=== PATIENT | female | born 1940 | race Hispanic/Latino ===

== ENCOUNTER 2017-03-25 10:54 | Inpatient (IN) | payer MEDICARE, BC ==
[2017-03-25 10:54] VITALS: BMI 18.6
[2017-03-25 11:58] LABS: HEMOGLOBIN 12.5 g/dL (12.0-16.0); LYMPH # 0.6 K/uL (1.0-4.3); MEAN CELL VOLUME 87.2 fl (81.0-99.0); MEAN CORPUSCULAR HEMOGLOBIN 29.6 pg (27.0-31.0); MEAN CORPUSCULAR HGB CONC 33.9 g/dL (33.0-37.0); MEAN PLATELET VOLUME 6.3 fl (7.2-11.7); MONO # 0.6 K/uL (0.0-0.8); MONO % 17.2 % (0.0-10.0); NEUT # 2.1 K/uL (1.8-7.0); NEUT % 62.8 % (50.0-75.0); NRBC % 0.1 % (0.0-0.0); PLATELET COUNT 270 K/uL (130-400); RBC 4.22 Mil/uL (3.80-5.20); RED CELL DISTRIBUTION WIDTH 13.9 % (11.5-14.5); WHITE BLOOD COUNT 3.4 K/uL (4.8-10.8)
[2017-03-25 12:12] LABS: BLOOD UREA NITROGEN 12 mg/dl (7-17); CALCIUM 9.3 mg/dL (8.4-10.2); GFR AFRICAN-AMERICAN > 60; GFR NON-AFRICAN AMERICAN > 60
[2017-03-25 12:14] LABS: PARTIAL THROMBOPLASTIN TIME 34.7 Seconds (25.6-37.1); PROTHROMBIN TIME 10.5 Seconds (9.8-13.1)
[2017-03-25] MEDS ORDERED: Dexamethasone 10 MG in Sodium Chloride 0.9% 50 ML IV ONE (12:15)
--- NOTE | 2017-03-25 13:14 | ED PDOC ---
HPI: General Adult Time Seen by Provider: 03/25/17 11:25 Chief Complaint (Nursing): ENT Problem Chief Complaint (Provider): Right hand pain History Per: Patient History/Exam Limitations: no limitations Onset/Duration Of Symptoms: Days Additional Complaint(s): The patient is a 77yo female, hx of hypertension, presents to the ED for evaluation of right hand pain, ongoing for "a while". Patient reports she had an outpatient MRI which showed abnormal findings of cervical spine with possible compression of cervical cord. Dr. Gomez sent patient here for evaluation. Patient currently has no additional medical complaints. Past Medical History Reviewed: Historical Data, Nursing Documentation, Vital Signs Vital Signs: Last Vital Signs Temp 98.3 F 03/25/17 12:58 Pulse 82 03/25/17 12:58 Resp 19 03/25/17 12:58 BP 132/74 03/25/17 12:58 Pulse Ox 96 03/25/17 13:20 - Medical History PMH: HTN - Surgical History Surgical History: No Surg Hx Denies: Pacemaker - Family History Family History: States: No Known Family Hx - Home Medications Home Medications: Ambulatory Orders Medication Instructions Recorded Solifenacin Succinate [Vesicare] 5 mg PO DAILY 03/04/14 Zinc Gluconate [Zinc Natural] 50 mg PO DAILY 01/16/15 Apixaban [Eliquis] 5 mg PO Q12H 03/25/17 Cholecalciferol [Vitamin D 1000 IU] 1,000 unit PO DAILY 03/25/17 Diltiazem HCl [Diltiazem ER] 240 mg PO DAILY 03/25/17 Magnesium Oxide [Mag-Ox] 400 mg PO DAILY 03/25/17 Mesalamine [Lialda] 2.4 gm PO BID 03/25/17 Pramipexole Di-HCl [Pramipexole 0.25 mg PO HS 03/25/17 Dihydrochloride] Pregabalin [Lyrica] 50 mg PO Q12H 03/25/17 Thyroid [[place] Thyroid] 30 mg PO DAILY 03/25/17 Ubidecarenone [Coenzyme Q10] 1 cap PO DAILY 03/25/17 - Allergies Allergies/Adverse Reactions: Allergies Allergy/AdvReac Type Severity Reaction Status Date / Time statins Allergy Severe RASH Uncoded 03/04/14 11:49 Review of Systems ROS Statement: Except As Marked, All Systems Reviewed And Found Negative Musculoskeletal: Positive for: Hand Pain (right) Physical Exam - Reviewed Nursing Documentation Reviewed: Yes Vital Signs Reviewed: Yes - Physical Exam Appears: Positive for: Well, Non-toxic, No Acute Distress Head Exam: Positive for: ATRAUMATIC, NORMAL INSPECTION, NORMOCEPHALIC Skin: Positive for: Normal Color, Warm, DRY Eye Exam: Positive for: Normal appearance Neck: Positive for: Normal, Supple Cardiovascular/Chest: Positive for: Regular Rate, Rhythm Respiratory: Positive for: Normal Breath Sounds. Negative for: Respiratory Distress Extremity: Positive for: Normal ROM. Negative for: Deformity, Swelling Neurologic/Psych: Positive for: Alert, Oriented - Laboratory Results Result Diagrams: 03/25/17 11:45 03/25/17 11:45 - ECG O2 Sat by Pulse Oximetry: 96 (RA) Pulse Ox Interpretation: Normal Medical Decision Making Medical Decision Making: Time: 1140 Impression: Neuropathy, concern for compression effect on cervical cord Plan: -- Consult with Dr. Gomez, neurosurgeon for further management. Reassess Scribe Attestation: Documented by Lou Redd acting as a scribe for Leonidas Sheppard MD. Provider Attestation: All medical record entries made by the Scribe were at my direction and personally dictated by me. I have reviewed the chart and agree that the record accurately reflects my personal performance of the history, physical exam, medical decision making, and the department course for this patient. I have also personally directed, reviewed, and agree with the discharge instructions and disposition. Disposition - Clinical Impression Clinical Impression: Cervical spinal cord compression - Patient ED Disposition Is Patient to be Admitted: Yes Discussed With : Alok Mendoza Counseled Patient/Family Regarding: Studies Performed, Diagnosis - Disposition Disposition Time: 11:47 Condition: FAIR - Pt Status Changed To: Hospital Disposition Of: Inpatient - Admit Certification Admit to Inpatient:: After my assessment, the patient will require hospitalization for at least two midnights. This is because of the severity of symptoms shown, intensity of services needed, and/or the medical risk in this patient being treated as an outpatient. - POA Present On Arrival: None
[2017-03-25 13:50] LABS: ANISOCYTOSIS SLIGHT; BASOPHIL 2 % (0-2); LARGE PLATELETS PRESENT; LYMPHOCYTE 21 % (20-50); MONOCYTE 16 % (0-10); NEUTROPHIL 59 % (42-75); PLATELET ESTIMATE NORMAL (NORMAL); POIKILOCYTOSIS SLIGHT; REACTIVE LYMPHOCYTES 2 % (0-0); TOTAL CELLS COUNTED 100
[2017-03-25] MEDS: Magnesium Oxide 400 mg Tab UD PO SCH (16:38)
[2017-03-25] MEDS: THYROID 30 MG TAB PO SCH (16:39)
[2017-03-25] MEDS: methylPREDNISolone 40 MG in Sodium Chloride 0.9% 50 ML IVPB SCH (17:09)
--- NOTE | 2017-03-25 17:24 | RAD ---
PROCEDURE: CHEST RADIOGRAPH, 1 VIEW HISTORY: COPD COMPARISON: None available. FINDINGS: LUNGS: A small nodular density in the superior right lung zone for which follow-up chest CT is advised. No acute infiltrate is appreciate or pleural effusion in this time. There is limited mamillation of the right hemidiaphragm. PLEURA: No pneumothorax or pleural fluid seen. CARDIOVASCULAR: Cardiac silhouette appears upper limits normal size. There is no pulmonary vascular derangement identified. OSSEOUS STRUCTURES: No significant abnormalities. VISUALIZED UPPER ABDOMEN: Normal. OTHER FINDINGS: None. IMPRESSION: No acute infiltrate or pleural effusion is identified at this time. A small nodule is identified in the right upper lung zone for which follow-up chest CT is advised to evaluate for potential malignancy. Findings discussed with Dr. Mendoza, 04/03/1980 17:15 p.m.
[2017-03-25 18:36] LABS: SQUAMOUS EPITHIAL 6 /hpf (0-5); URINE BACTERIA RARE (<OCC); URINE BILIRUBIN NEGATIVE (NEGATIVE); URINE BLOOD NEGATIVE (NEGATIVE); URINE CLARITY CLOUDY (Clear); URINE COLOR AMBER (YELLOW); URINE GLUCOSE (UA) NEG (Normal); URINE LEUKOCYTE ESTERASE MOD Leu/uL (Negative); URINE NITRATE NEGATIVE (NEGATIVE); URINE PROTEIN 100 mg/dL (NEGATIVE); URINE UROBILINOGEN 0.2-1.0 mg/dL (0.2-1.0)
--- NOTE | 2017-03-25 19:38 | CP.PCM.CON ---
History of Present Illness - History of Present Illness History of Present Illness: I was asked to see patient by Dr Mendoza. Patient is a 77 year old female with a history of HTN, PAD, LLE amputation, who presents with neck pain. Patient has cervical disc disease and requires surgery. Patient had a previous nuclear stress test which was negative for ischemia. Review of Systems - Constitutional Constitutional: absent: As Per HPI, Anorexia, Chills, Daytime Sleepiness, Excessive Sweating, Fatigue, Fever, Frequent Falls, Headache, Increased Appetite , Lethargy, Malaise, Night Sweats, Snoring, Sleep Apnea, Weight Gain, Weight Loss, Weakness, Other - EENT Eyes: absent: As Per HPI, Blind Spots, Blurred Vision, Change in Vision, Decreased Night Vision, Diplopia, Discharge, Dry Eye, Exophthalmos, Floaters, Irritation, Itchy Eyes, Loss of Peripheral Vision, Pain, Photophobia, Requires Corrective Lenses, Sees Flashes, Spots in Vision, Tunnel Vision, Other Visual Disturbances, Loss of Vision, Other Ears: absent: As Per HPI, Decreased Hearing, Ear Discharge, Ear Pain, Tinnitus, Abnormal Hearing, Disequilibrium, Dizziness, Other Nose/Mouth/Throat: absent: As Per HPI, Epistaxis, Nasal Congestion, Nasal Discharge, Nasal Obstruction, Nasal Trauma, Nose Pain, Post Nasal Drip, Sinus Pain, Sinus Pressure, Bleeding Gums, Change in Voice, Dental Pain, Dry Mouth, Dysphagia, Halitosis, Hoarsness, Lip Swelling, Mouth Lesions, Mouth Pain, Odynophagia, Sore Throat, Throat Swelling, Tongue Swelling, Facial Pain, Neck Pain, Neck Mass, Other - Cardiovascular Cardiovascular: absent: As Per HPI, Acrocyanosis, Chest Pain, Chest Pain at Rest , Chest Pain with Activity, Claudication, Diaphoresis, Dyspnea, Dyspnea on Exertion, Edema, Irregular Heart Rhythm, Pain Radiating to Arm/Neck/Jaw, Leg Edema, Leg Ulcers, Lightheadedness, Orthopnea, Palpitations, Paroxysmal Nocturnal Dyspnea, Pedal Edema, Radiating Pain, Rapid Heart Rate, Slow Heart Rate, Syncope, Other - Respiratory Respiratory: absent: As Per HPI, Cough, Dyspnea, Hemoptysis, Dyspnea on Exertion , Wheezing, Snoring, Stridor, Pain on Inspiration, Chest Congestion, Excessive Mucous Production, Change in Mucous Color, Pain with Coughing, Other - Gastrointestinal Gastrointestinal: absent: As Per HPI, Abdominal Pain, Belching, Bloating, Change in Bowel Habits, Change in Stool Character, Coffee Ground Emesis, Constipation, Cramping, Diarrhea, Dyspepsia, Dysphagia, Early Satiety, Excessive Flatus, Fecal Incontinence, Heartburn, Hematemesis, Hematochezia, Loose Stools, Melena, Nausea, Odynophagia, Temesmus, Vomiting, Other - Genitourinary Genitourinary: absent: As Per HPI, Change in Urinary Stream, Difficulty Urinating, Dysuria, Flank Pain, Hematuria, Pyuria, Nocturia, Urinary Incontinence, Urinary Frequency, Urinary Hesitance, Urinary Urgency, Voiding Freq/Small Amts, Freq UTI, Hx Renal/Bladder Calculi, Hx /Renal Surgery, Bladder Distension, Other - Musculoskeletal Musculoskeletal: Neck Pain - Integumentary Integumentary: absent: As Per HPI, Acne, Alopecia, Bleeding Lesions, Change in Hair, Change in Nails, Change in Pigmentation, Changing Lesions, Dry Skin, Erythema, Furuncle, Hirsutism, Lesions, New Lesions, Non-Healing Lesions, Photosensitivity, Pruritus, Rash, Skin Pain, Skin Ulcer, Sores, Striae, Swelling , Unusual Bruising, Wounds, Jaundice, Other - Neurological Neurological: absent: As Per HPI, Abnormal Gait, Abnormal Hearing, Abnormal Movements, Abnormal Speech, Behavioral Changes, Burning Sensations, Confusion, Convulsions, Disequilibrium, Dizziness, Numbness, Focal Weakness, Frequent Falls , Headaches, Lack of Coordination, Loss of Vision, Memory Loss, Paresthesias, Radicular Pain, Restless Legs, Sensory Deficit, Syncope, Tingling, Tremor, Vertigo, Weakness, Other Visual Disturbances, Other - Psychiatric Psychiatric: absent: As Per HPI, Abnormal Sleep Pattern, Anhedonia, Anxiety, Auditory Hallucinations, Behavioral Changes, Change in Appetite, Change in Libido, Confusion, Depression, Difficulty Concentrating, Hallucinations, Homicidal Ideation, Hopelessness, Irritability, Memory Loss, Mood Swings, Panic Attacks, Paranoia, Suicidal Ideation, Visual Hallucinations, Tactile Hallucinations, Other - Endocrine Endocrine: absent: As Per HPI, Change in Body Appearance, Change in Libido, Cold Intolorance, Deepening of Voice, Excessive Sweating, Fatigue, Flushing, Heat Intolorance, Increase in Ring/Shoe/Hat Size, Palpitations, Polydipsia, Polyphagia, Polyuria, Other - Hematologic/Lymphatic Hematologic: absent: As Per HPI, Easy Bleeding, Easy Bruising, Lymphadenopathy, Other Past Patient History - Infectious Disease Hx of Infectious Diseases: None - Past Medical History & Family History Past Medical History?: Yes - Past Social History Smoking Status: Former Smoker - CARDIAC Hx Hypertension: Yes Hx Pacemaker: No - PULMONARY Hx Respiratory Disorders: Yes Other/Comment: smoker - NEUROLOGICAL Hx Neurological Disorder: Yes Other/Comment: carpal tunnel rt. hand - HEENT Hx HEENT Problems: No - RENAL Hx Chronic Kidney Disease: No - ENDOCRINE/METABOLIC Hx Endocrine Disorders: Yes Hx Hypothyroidism: Yes - HEMATOLOGICAL/ONCOLOGICAL Hx Blood Disorders: No - INTEGUMENTARY Hx Dermatological Problems: No - MUSCULOSKELETAL/RHEUMATOLOGICAL Hx Musculoskeletal Disorders: Yes Hx Falls: No - GASTROINTESTINAL Hx Gastrointestinal Disorders: No Hx Colitis: Yes - GENITOURINARY/GYNECOLOGICAL Hx Genitourinary Disorders: No - PSYCHIATRIC Hx Psychophysiologic Disorder: No Hx Substance Use: No - SURGICAL HISTORY Hx Surgeries: Yes Hx Amputation: Yes (left aka) Other/Comment: 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 - ANESTHESIA Hx Anesthesia: Yes Hx Anesthesia Reactions: No Hx Malignant Hyperthermia: No Has any member of the family had a problem w/ anesthesia?: No Meds Allergies/Adverse Reactions: Allergies Allergy/AdvReac Type Severity Reaction Status Date / Time statins Allergy Severe RASH Uncoded 03/04/14 11:49 - Medications Medications: Current Medications Cholecalciferol (Vitamin D) 1,000 iu PO DAILY [facility] Home Med (Mesalamine [Lialda]) 2.4 gm PO BID [facility] Last Admin: 03/25/17 17:10 Dose: 2.4 gm Methylprednisolone 40 mg/ (Sodium Chloride) 50 mls @ 100 mls/hr IVPB DAILY [facility] Last Admin: 03/25/17 17:09 Dose: 100 mls/hr Magnesium Oxide (Mag-Ox) 400 mg PO DAILY [facility] Last Admin: 03/25/17 16:38 Dose: Not Given Pramipexole Dihydrochloride (Mirapex) 0.25 mg PO [facility] Pregabalin (Lyrica) 50 mg PO Q12@0900,2100 [facility] Thyroid ([place] Thyroid) 30 mg PO DAILY [facility] Last Admin: 03/25/17 16:39 Dose: Not Given Physical Exam - Constitutional Appears: Non-toxic - Head Exam Head Exam: NORMAL INSPECTION - Eye Exam Eye Exam: Normal appearance - ENT Exam ENT Exam: Mucous Membranes Moist - Neck Exam Neck exam: Positive for: Full Rom - Respiratory Exam Respiratory Exam: Decreased Breath Sounds - Cardiovascular Exam Cardiovascular Exam: REGULAR RHYTHM - GI/Abdominal Exam GI & Abdominal Exam: Normal Bowel Sounds - Rectal Exam Rectal Exam: Deferred - Extremities Exam Additional comments: LLE amputation - Back Exam Back exam: NORMAL INSPECTION - Neurological Exam Neurological exam: Alert, Oriented x3 - Psychiatric Exam Psychiatric exam: Normal Affect - Skin Skin Exam: Normal Color Results - Vital Signs Recent Vital Signs: Last Vital Signs Temp 97.3 F L 03/25/17 16:32 Pulse 88 03/25/17 16:32 Resp 16 03/25/17 16:32 BP 101/72 03/25/17 16:32 Pulse Ox 94 L 03/25/17 16:32 - Labs Result Diagrams: 03/25/17 11:45 03/25/17 11:45 Labs: Laboratory Results - last 24 hr 03/25/17 17:52 Urine Color [place] Urine Clarity Cloudy Urine pH 5.0 Ur Specific [place] 1.020 Urine Protein 100 Urine Glucose (UA) Neg Urine Ketones Trace Urine Blood Negative Urine Nitrate Negative Urine Bilirubin Negative Urine Urobilinogen 0.2-1.0 Ur Leukocyte Esterase Mod Urine Microscopic WBC 51 H Ur Squamous Epith Cells 6 H Urine Bacteria Rare - EKG Data EKG Interpreted by: Myself Assessment & Plan (1) Cervical spinal cord compression Assessment and Plan: I reviewed the stress test with the patient which was performed as an outpatient. Stress test was negative for myocardial ischemia, and left ventricular function is normal The echocardiogram performed today also reveals normal left ventricular function. There is no cardiovascular contraindication to the planned surgery. Status: Acute
[2017-03-26] MEDS ORDERED: Thrombin Topical 5,000 IU Spray Kit ONE (07:11)
[2017-03-26] MEDS ORDERED: Absorbable Gelatin Sponge Size 100 ONE (07:11)
[2017-03-26] MEDS ORDERED: Propofol 10 mg/ml Inj (20 ML) ONE (07:12)
[2017-03-26] MEDS ORDERED: Midazolam 2 MG/2 ML VIAL ONE (07:12)
[2017-03-26] MEDS ORDERED: Succinylcholine 200 mg/10 ml Inj IV ONE (07:12)
[2017-03-26] MEDS ORDERED: ePHEDrine 50 mg/ml Inj ONE (07:12)
[2017-03-26] MEDS ORDERED: Phenylephrine 10 mg/ml Inj ONE (07:12)
[2017-03-26] MEDS ORDERED: Rocuronium 10 mg/ml (5 ml) ONE (07:12)
[2017-03-26] MEDS: diltiaZEM 240 mg/24 Hours CD Cap PO SCH (07:31)
--- NOTE | 2017-03-26 07:39 | CP.PCM.CON ---
History of Present Illness - History of Present Illness History of Present Illness: Dr. 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 Review of Systems - Review of Systems Systems not reviewed;Unavailable: Acuity of Condition - EENT Eyes: Decreased Night Vision - Cardiovascular Additional comments: Hx Htn - Genitourinary Additional comments: hx overactive bladder on vesicare - Musculoskeletal Musculoskeletal: Muscle Weakness, Neck Pain, Radiating Pain into Limb, Tingling Additional comments: Left AKA,restless leg syndrome - Neurological Neurological: As Per HPI - Endocrine Additional Comments: Hx Hypothyroidism - Hematologic/Lymphatic Additional comments: severe PVD,takes Eliquis,last used 1 week ago Past Patient History - Infectious Disease Hx of Infectious Diseases: None - Tetanus Immunizations Tetanus Immunization: Unknown - Past Medical History & Family History Past Medical History?: Yes - Past Social History Smoking Status: Light Smoker < 10 Cigarettes Daily Chewing Tobacco Use: No Cigar Use: No 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 hand - HEENT Hx HEENT Problems: No - RENAL Hx Chronic Kidney Disease: No - ENDOCRINE/METABOLIC Hx Endocrine Disorders: Yes Hx Hypothyroidism: Yes - HEMATOLOGICAL/ONCOLOGICAL Hx Blood Disorders: No - INTEGUMENTARY Hx Dermatological Problems: No - MUSCULOSKELETAL/RHEUMATOLOGICAL Hx Musculoskeletal Disorders: Yes Hx Falls: No - GASTROINTESTINAL Hx Gastrointestinal Disorders: No Hx Colitis: Yes - GENITOURINARY/GYNECOLOGICAL Hx Genitourinary Disorders: No - PSYCHIATRIC Hx Psychophysiologic Disorder: No Hx Substance Use: No - SURGICAL HISTORY Hx Surgeries: Yes Hx Amputation: Yes (left aka) Other/Comment: 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 - ANESTHESIA Hx Anesthesia: Yes Hx Anesthesia Reactions: No Hx Malignant Hyperthermia: No Has any member of the family had a problem w/ anesthesia?: No Meds Allergies/Adverse Reactions: Allergies Allergy/AdvReac Type Severity Reaction Status Date / Time statins Allergy Severe RASH Uncoded 03/04/14 11:49 - Medications Medications: Current Medications Cholecalciferol (Vitamin D) 1,000 iu PO DAILY [facility] Diltiazem HCl (Cardizem Cd) 240 mg PO DAILY [facility] Home Med (Mesalamine [Lialda]) 2.4 gm PO BID [facility] Last Admin: 03/25/17 17:10 Dose: 2.4 gm Methylprednisolone 40 mg/ (Sodium Chloride) 50 mls @ 100 mls/hr IVPB DAILY [facility] Last Admin: 03/25/17 17:09 Dose: 100 mls/hr Magnesium Oxide (Mag-Ox) 400 mg PO DAILY [facility] Last Admin: 03/25/17 16:38 Dose: Not Given Pramipexole Dihydrochloride (Mirapex) 0.25 mg PO HS [facility] Last Admin: 03/25/17 21:00 Dose: 0.25 mg Pregabalin (Lyrica) 50 mg PO Q12@0900,2100 [facility] Last Admin: 03/25/17 20:57 Dose: 50 mg Thyroid ([place] Thyroid) 30 mg PO DAILY [facility] Last Admin: 03/25/17 16:39 Dose: Not Given Physical Exam - Constitutional Appears: Well, Non-toxic, No Acute Distress - Head Exam Head Exam: ATRAUMATIC, NORMAL INSPECTION, NORMOCEPHALIC - Eye Exam Eye Exam: EOMI, Normal appearance, PERRL Pupil Exam: NORMAL ACCOMODATION - Neck Exam Additional comments: posterior cervical tenderness,normal inspection - Respiratory Exam Respiratory Exam: Clear to Auscultation Bilateral - Cardiovascular Exam Cardiovascular Exam: REGULAR RHYTHM, +S1, +S2 - GI/Abdominal Exam GI & Abdominal Exam: Normal Bowel Sounds, Soft - Rectal Exam Rectal Exam: Deferred - Extremities Exam Additional comments: left aka,+2 left femoral,RLE and BUE pulses,healed surgical scars BLE - Back Exam Back exam: vertebral tenderness - Neurological Exam Neurological exam: Alert, Oriented x3 Additional comments: BUCK x 4 antigravity,bilateral bicep and wrist extensor weakness 4/5 >right, paresthesias bilateral hands with 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,depressed DTR's,neg merrill's - Psychiatric Exam Psychiatric exam: Normal Affect, Normal Mood - Skin Skin Exam: Dry, Intact Results - Vital Signs Recent Vital Signs: Last Vital Signs Temp 98.6 F 03/26/17 04:44 Pulse 83 03/26/17 04:44 Resp 19 03/26/17 04:44 BP 163/87 H 03/26/17 04:44 Pulse Ox 95 03/26/17 04:44 - Labs Result Diagrams: 03/25/17 11:45 03/25/17 11:45 Labs: Laboratory Results - last 24 hr 03/25/17 17:52 Urine Color [place] Urine Clarity Cloudy Urine pH 5.0 Ur Specific [place] 1.020 Urine Protein 100 Urine Glucose (UA) Neg Urine Ketones Trace Urine Blood Negative Urine Nitrate Negative Urine Bilirubin Negative Urine Urobilinogen 0.2-1.0 Ur Leukocyte Esterase Mod Urine Microscopic WBC 51 H Ur Squamous Epith Cells 6 H Urine Bacteria Rare - Impressions Impression: Images reviewed by Dr. Gomez Assessment & Plan - Assessment and Plan (Free Text) Assessment: 77yo female with mutiple medical problems and multi level Cervical Spondylosis worse at C4-5,C5-6/Myelopathy RUE Plan: due to worsening of symptoms pt agree's to have proposed ACDF C4-5,C5-6, possible C3-4,informed that symptoms may or may not improve post surgery,risks and benefits of surgery explained to pt,expressed understanding and wishes to proceed.
--- NOTE | 2017-03-26 07:44 | CARD ---
APPROVED REPORT EXAM: Two-dimensional and M-mode echocardiogram with Doppler and color Doppler. Other Information Quality : GoodRhythm : NSR INDICATION Pre-Op 2D DIMENSIONS IVSd0.73 (0.7-1.1cm)LVDd4.34 (3.9-5.9cm) LVOT Diameter1.98 (1.8-2.4cm)PWd1.02 (0.7-1.1cm) IVSs0.99 (0.8-1.2cm)LVDs3.45 (2.5-4.0cm) FS (%) 20.6 %PWs1.21 (0.8-1.2cm) M-Mode DIMENSIONS Left Atrium (MM)3.21 (2.5-4.0cm)IVSd0.97 (0.7-1.1cm) Aortic Root2.59 (2.2-3.7cm)LVDd4.62 (4.0-5.6cm) Aortic Cusp Exc.1.62 (1.5-2.0cm)PWd1.00 (0.7-1.1cm) IVSs1.26 cmFS (%) 36 % LVDs2.94 (2.0-3.8cm)PWs1.62 cm Mitral Valve MV E Btadriwc65.5cm/sMV DECEL [id number] A Kohhkvoa251.2cm/s MV GHF85dmO/A ratio0.5MVA (PHT)4.88cm2 TDI Lateral E' Peak V5.95cm/sMedial E' Peak V6.03cm/sE/Lateral E'9.2 E/Medial E'9.0 Pulmonary Valve PV Peak Zhhqnrxz13.9cm/s Tricuspid Valve TR Peak Lxseyacx323uu/sRAP [id number] Peak Gr.22mmHg [id number] LEFT VENTRICLE The left ventricle is normal size. There is normal left ventricular wall thickness. Left ventricle systolic function is normal. The Ejection Fraction is 65-70%. There is normal LV segmental wall motion. Transmitral Doppler flow pattern is Grade I-abnormal relaxation pattern. RIGHT VENTRICLE The right ventricle is normal size. There is normal right ventricular wall thickness. The right ventricular systolic function is normal. ATRIA The left atrium size is normal. The right atrium size is normal. AORTIC VALVE The aortic valve is normal in structure and function. No aortic regurgitation is present. There is no aortic valvular stenosis. MITRAL VALVE The mitral valve is normal in structure and function. There is no evidence of mitral valve prolapse. There is no mitral valve stenosis. There is no mitral valve regurgitation noted. TRICUSPID VALVE The tricuspid valve is normal in structure. There is mild tricuspid regurgitation. Right ventricular systolic pressure is estimated at 33 mmHg. There is mild pulmonary hypertension. PULMONIC VALVE The pulmonary valve is normal in structure and function. There is no pulmonic valvular regurgitation. GREAT VESSELS The aortic root is normal in size. The IVC is normal in size and collapses >50% with inspiration. PERICARDIAL EFFUSION The pericardium appears normal. <Conclusion> The left ventricle is normal size. There is normal left ventricular wall thickness. There is normal LV segmental wall motion. Left ventricle systolic function is normal. The Ejection Fraction is 65-70%. Transmitral Doppler flow pattern is Grade I-abnormal relaxation pattern.
[2017-03-26] MEDS ORDERED: Lactated Ringer's 1,000 ML IV ONE (07:45)
[2017-03-26] MEDS ORDERED: Lactated Ringer's 500 ML IV ONE (07:50)
--- NOTE | 2017-03-26 07:54 | CARD ---
APPROVED REPORT EKG Measurement Heart [id number] <Conclusion> Normal sinus rhythm Anterior infarct, age undetermined Abnormal ECG
[2017-03-26] MEDS ORDERED: Absorbable Gelatin Sponge Size 100 TP ONE (08:36)
[2017-03-26] MEDS ORDERED: HEMOSTATIC MATRIX 10 ML DIS.NEEDLE TOP ONE (08:36)
[2017-03-26] MEDS ORDERED: Thrombin Topical 5,000 IU Spray Kit TOP ONE (08:38)
[2017-03-26] MEDS ORDERED: Dexamethasone 4 mg/1 ml ONE (08:48)
[2017-03-26] MEDS ORDERED: Neostigmine Methylsulfate 3mg/3ml Syringe IV ONE (09:01)
[2017-03-26] MEDS ORDERED: HYDROmorphone 0.5 mg/0.5 ml ISec IVP PRN (09:31)
[2017-03-26] MEDS ORDERED: Morphine 4 MG/ML VIAL IVP PRN (10:04)
--- NOTE | 2017-03-26 10:11 | CP.PCM.HP ---
History of Present Illness - History of Present Illness History of Present Illness: This is a 77 year old female with a history of HTN, PAD, LLE above knee amputation on 2016, who was admitted with intractable neck pain radiating RUE with progressive weakness and paresthesias, sudden onset 1 year ago. Patient denies traumatic incident. Denies chest pain, SOB, N/V, abdominal pain or other complains. Patient is an active smoker. Present on Admission - Present on Admission Any Indicators Present on Admission: No History of DVT/PE: No History of Uncontrolled Diabetes: No Urinary Catheter: No Decubitus Ulcer Present: No Review of Systems - Review of Systems All systems: reviewed and no additional remarkable complaints except (as per HPI ) Past Patient History - Infectious Disease Hx of Infectious Diseases: None - Past Medical History & Family History Past Medical History?: Yes - Past Social History Smoking Status: Former Smoker - CARDIAC Hx Hypertension: Yes Hx Pacemaker: No - PULMONARY Hx Respiratory Disorders: Yes Other/Comment: smoker - NEUROLOGICAL Hx Neurological Disorder: Yes Other/Comment: carpal tunnel rt. hand - HEENT Hx HEENT Problems: No - RENAL Hx Chronic Kidney Disease: No - ENDOCRINE/METABOLIC Hx Endocrine Disorders: Yes Hx Hypothyroidism: Yes - HEMATOLOGICAL/ONCOLOGICAL Hx Blood Disorders: No - INTEGUMENTARY Hx Dermatological Problems: No - MUSCULOSKELETAL/RHEUMATOLOGICAL Hx Musculoskeletal Disorders: Yes Hx Falls: No - GASTROINTESTINAL Hx Gastrointestinal Disorders: No Hx Colitis: Yes - GENITOURINARY/GYNECOLOGICAL Hx Genitourinary Disorders: No - PSYCHIATRIC Hx Psychophysiologic Disorder: No Hx Substance Use: No - SURGICAL HISTORY Hx Surgeries: Yes Hx Amputation: Yes (left aka) Other/Comment: 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 - ANESTHESIA Hx Anesthesia: Yes Hx Anesthesia Reactions: No Hx Malignant Hyperthermia: No Has any member of the family had a problem w/ anesthesia?: No Meds Allergies/Adverse Reactions: Allergies Allergy/AdvReac Type Severity Reaction Status Date / Time statins Allergy Severe RASH Uncoded 03/04/14 11:49 Physical Exam - Constitutional Appears: No Acute Distress - ENT Exam ENT Exam: Mucous Membranes Moist - Respiratory Exam Respiratory Exam: Decreased Breath Sounds - Cardiovascular Exam Cardiovascular Exam: REGULAR RHYTHM, +S1, +S2 - GI/Abdominal Exam GI & Abdominal Exam: Normal Bowel Sounds, Soft. absent: Distended, Guarding, Rigid, Tenderness - Extremities Exam Extremities exam: Positive for: normal inspection (no edema in right lower extremity, pulses present. AKA of left extremity) - Neurological Exam Neurological exam: Alert, Oriented x3 - Psychiatric Exam Psychiatric exam: Normal Affect, Normal Mood - Skin Skin Exam: Dry, Intact, Normal Color Results - Vital Signs Recent Vital Signs: Last Vital Signs Temp 97.2 F L 03/26/17 09:30 Pulse 80 03/26/17 10:00 Resp 18 03/26/17 10:00 BP 153/80 H 03/26/17 10:00 Pulse Ox 99 03/26/17 10:00 - Labs Result Diagrams: 03/25/17 11:45 03/25/17 11:45 Labs: Laboratory Results - last 24 hr 03/25/17 03/26/17 03/26/17 17:52 07:45 08:18 Urine Color [place] Urine Clarity Cloudy Urine pH 5.0 Ur Specific [place] 1.020 Urine Protein 100 Urine Glucose (UA) Neg Urine Ketones Trace Urine Blood Negative Urine Nitrate Negative Urine Bilirubin Negative Urine Urobilinogen 0.2-1.0 Ur Leukocyte Esterase Mod Urine Microscopic WBC 51 H Ur Squamous Epith Cells 6 H Urine Bacteria Rare Blood Type A POSITIVE Blood Type Confirm A POSITIVE Antibody Screen Positive BBK History Checked No verified bt Assessment & Plan (1) Cervical spinal cord compression Status: Acute Comment: Patient scheduled for surgery tomorrow morning. F/U Cardiology clearance. NPO after midnight for OR. f/u EKG, CXR. f/u echocardiogram. 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
[2017-03-26] MEDS ORDERED: Oxycodone/Acetaminophen 5/325 mg Tab PO PRN (10:19)
[2017-03-26] MEDS ORDERED: Lactated Ringer's 1,000 ML IV SCH (10:30)
--- NOTE | 2017-03-26 11:11 | CP.PCM.PN ---
Subjective - Date & Time of Evaluation Date of Evaluation: 03/26/17 Time of Evaluation: 11:11 Objective - Vital Signs/Intake and Output Vital Signs (last 24 hours): Temp Pulse Resp BP Pulse Ox 97.2 F L 68 18 164/78 H 98 03/26/17 09:30 03/26/17 11:00 03/26/17 11:00 03/26/17 11:00 03/26/17 11:00 Intake and Output: 03/26/17 03/26/17 06:59 18:59 Intake Total 1000 Balance 1000 - Medications Medications: Current Medications Cholecalciferol (Vitamin D) 1,000 iu PO DAILY [facility] Cyclobenzaprine HCl (Flexeril) 5 mg PO TID PRN PRN Reason: Muscle spasm Diltiazem HCl (Cardizem Cd) 240 mg PO DAILY [facility] Last Admin: 03/26/17 07:31 Dose: 240 mg Home Med (Mesalamine [Lialda]) 2.4 gm PO BID [facility] Last Admin: 03/25/17 17:10 Dose: 2.4 gm Hydromorphone HCl (Dilaudid) 0.5 mg IVP Q10M PRN PRN Reason: Pain, severe (8-10) Stop: 03/26/17 11:31 Methylprednisolone 40 mg/ (Sodium Chloride) 50 mls @ 100 mls/hr IVPB DAILY [facility] Last Admin: 03/25/17 17:09 Dose: 100 mls/hr Cefazolin Sodium 1 gm/ Sodium (Chloride) 100 mls @ 100 mls/hr IVPB Q8 [facility] Lactated Ringer's (Lactated Ringer's) 1,000 mls @ 60 mls/hr IV .[id number] [facility] Stop: 03/27/17 10:30 Magnesium Oxide (Mag-Ox) 400 mg PO DAILY [facility] Last Admin: 03/25/17 16:38 Dose: Not Given Morphine Sulfate (Morphine) 2 mg IVP Q6 PRN PRN Reason: Pain, severe (8-10) Ondansetron HCl (Zofran Inj) 4 mg IVP ONCE PRN PRN Reason: Nausea/Vomiting Stop: 03/26/17 11:31 Oxycodone/Acetaminophen (Percocet 5/325 Mg Tab) 1 tab PO Q4 PRN PRN Reason: Pain, moderate (4-7) Stop: 03/29/17 10:20 Pramipexole Dihydrochloride (Mirapex) 0.25 mg PO HS [facility] Last Admin: 03/25/17 21:00 Dose: 0.25 mg Pregabalin (Lyrica) 50 mg PO Q12@0900,2100 [facility] Last Admin: 03/25/17 20:57 Dose: 50 mg Thyroid ([place] Thyroid) 30 mg PO DAILY [facility] Last Admin: 03/25/17 16:39 Dose: Not Given - Labs Labs: PT 10.5 Seconds (9.8-13.1) 03/25/17 11:45 INR 1.0 (0.9-1.2) 03/25/17 11:45 APTT 34.7 Seconds (25.6-37.1) 03/25/17 11:45
[2017-03-26] MEDS: ceFAZolin 1 GM in Sodium Chloride 0.9% 100 ML IVPB SCH (16:47)
[2017-03-26] MEDS: methylPREDNISolone 40 MG in Sodium Chloride 0.9% 50 ML IVPB SCH (16:50)
[2017-03-26] MEDS: Magnesium Oxide 400 mg Tab UD PO SCH (16:51)
[2017-03-26] MEDS ORDERED: ceFAZolin 1 GM in Sodium Chloride 0.9% 100 ML IVPB ONE (20:00)
[2017-03-27] MEDS: ceFAZolin 1 GM in Sodium Chloride 0.9% 100 ML IVPB SCH ×3 (00:36→16:54)
[2017-03-27 06:43] LABS: HEMOGLOBIN 13.3 g/dL (12.0-16.0); MEAN CELL VOLUME 88.2 fl (81.0-99.0); MEAN CORPUSCULAR HEMOGLOBIN 29.3 pg (27.0-31.0); MEAN CORPUSCULAR HGB CONC 33.2 g/dL (33.0-37.0); RBC 4.55 Mil/uL (3.80-5.20); RED CELL DISTRIBUTION WIDTH 13.9 % (11.5-14.5); WHITE BLOOD COUNT 7.8 K/uL (4.8-10.8)
[2017-03-27 06:45] LABS: BLOOD UREA NITROGEN 8 mg/dl (7-17); CALCIUM 9.2 mg/dL (8.4-10.2); GFR AFRICAN-AMERICAN > 60; GFR NON-AFRICAN AMERICAN > 60
[2017-03-27] MEDS ORDERED: ceFAZolin 1 GM in Sodium Chloride 0.9% 100 ML IVPB ONE (08:00)
[2017-03-27] MEDS: THYROID 30 MG TAB PO SCH (08:21)
[2017-03-27] MEDS: diltiaZEM 240 mg/24 Hours CD Cap PO SCH (08:21)
--- NOTE | 2017-03-27 08:27 | OP ---
PROCEDURE DATE: 03/26/2017 PREOPERATIVE DIAGNOSIS: Cervical spondylosis with myelopathy. POSTOPERATIVE DIAGNOSIS: Cervical spondylosis with myelopathy. PROCEDURE: Partial vertebrectomy of C4, C5 and C6; discectomy of C4-C5, C5-C6; interbody fusion of C4-C5, C5-C6 using the PEEK and bone; plating and instrumentation C4-C6 using an Amendia plate. SURGEON: Nash Gomez MD MEDICAL BILLER CODER: Linda Morales PA-C, who stayed throughout the case from the beginning to the end and help perform the surgery. DESCRIPTION OF PROCEDURE: The patient was brought to the operating room, administered general endotracheal anesthesia, and placed in a supine position. Head was placed in a doughnut. Care was taken to protect all pressure points. Right side of the neck was thoroughly prepped and draped in sterile manner after marking the skin incisions for cervical vertebrectomy. After prepping and draping the area, horizontal skin incision has been made. Bleeding skin has been controlled with bipolar system software programmer. After using a Bovie system software programmer, subcutaneous tissue and platysma has been cut, dissection has been carried out between trachea and esophagus medially and sternomastoid carried out laterally. Prevertebral fascia has been cauterized and cut. Identification of the levels has been done with the help of fluoroscopy. Longus colli has been detached, attachment of vertebral bodies at C4, C5, C6 *------* have been applied. Rest of the operation had been carried *------*. PARTIAL VERTEBRECTOMY OF C4, C5 AND C6, DISCECTOMY OF C4, C5 AND C6: By using a high speed drill, the vertebral bodies of C4 and C5 have been drilled and partial vertebrectomy including removal of the cartilage and plates and half of the vertebral body along with discectomy is performed. There was a tear in the posterior longitudinal ligament with a large piece of fragment of the disk going into the central that has been removed. Posterior longitudinal has been further opened, dura has been taken from side to side. Similarly at C5-C6 partial vertebrectomy including a discectomy has been performed. Osteophytes have been drilled just like we have done at about C4-C5 and once the discectomy has been performed, posterior longitudinal ligament has been opened. It has been partially calcified, partially it has been removed. Some of it stuck to the dura has been left in place. INTERBODY FUSION OF C4-C5, C5-C6 USING PEEK AND BONE: Two piece of PEEK implant have been brought in and filled with demineralized bone. They were gently tapped and space created at the partial vertebrectomy of C4-C5 and C5-C6. Position has been comfortably good. PLATING AND INSTRUMENTATION C4-C6 USING AN AMENDIA PLATE: An Amendia plate has been placed at vertebral bodies of C4-C6 by using 12 mm screw, it has been secured to C4, C5 and C6 vertebral bodies. All this has been done under fluoroscopy and one of this has been done. Hemostasis was best achieved. Reynaldo drain placed on the wound and brought out through a separate stab incision. *------*. Skin had been closed with intradermal 3 Vicryl stitches. The patient tolerated the procedure. After procedure, mobilized to recovery room in stable condition. Nash Gomez MD
[2017-03-27] MEDS: Magnesium Oxide 400 mg Tab UD PO SCH (09:35)
[2017-03-27] MEDS: Patient's Own Med (Solifenacin Succinate [Vesicare] 5 MG) PO SCH (12:24)
[2017-03-27] MEDS: methylPREDNISolone 40 MG in Sodium Chloride 0.9% 50 ML IVPB SCH ×2 (12:25→12:26)
[2017-03-27] MEDS: Benzocaine/Menthol (Cepacol) Lozenge PO PRN ×3 (14:05→23:35)
--- NOTE | 2017-03-27 20:37 | CP.PCM.PN ---
Subjective - Date & Time of Evaluation Date of Evaluation: 03/27/17 Time of Evaluation: 09:40 - Subjective Subjective: patient feeling well on POD #1 neck pain well controlled with pain medications Tolerating PO Denies chills, N/V, abdominal pain, numbness, tingling or weakness Afebrile Objective - Vital Signs/Intake and Output Vital Signs (last 24 hours): Temp Pulse Resp BP Pulse Ox 98.3 F 90 20 167/93 H 94 L 03/27/17 19:44 03/27/17 19:44 03/27/17 19:44 03/27/17 19:44 03/27/17 19:44 Intake and Output: 03/27/17 03/28/17 18:59 06:59 Intake Total 990 Output Total 15 Balance 975 - Medications Medications: Current Medications Benzocaine/Menthol (Cepacol Sore Throat) 1 dustin PO Q3 PRN PRN Reason: Sore Throat Last Admin: 03/27/17 17:10 Dose: 1 dustin Cholecalciferol (Vitamin D) 1,000 iu PO DAILY [facility] Last Admin: 03/27/17 09:36 Dose: 1,000 iu Cyclobenzaprine HCl (Flexeril) 5 mg PO TID PRN PRN Reason: Muscle spasm Diltiazem HCl (Cardizem Cd) 240 mg PO DAILY [facility] Last Admin: 03/27/17 08:21 Dose: 240 mg Home Med (Mesalamine [Lialda]) 2.4 gm PO BID [facility] Last Admin: 03/27/17 16:54 Dose: 2.4 gm Home Med (Solifenacin Succinate [Vesicare]) 5 mg PO DAILY [facility] Last Admin: 03/27/17 12:24 Dose: 5 mg Methylprednisolone 40 mg/ (Sodium Chloride) 50 mls @ 100 mls/hr IVPB DAILY [facility] Last Admin: 03/27/17 12:26 Dose: 100 mls/hr Cefazolin Sodium 1 gm/ Sodium (Chloride) 100 mls @ 100 mls/hr IVPB Q8 [facility] Last Admin: 03/27/17 16:54 Dose: 100 mls/hr Magnesium Oxide (Mag-Ox) 400 mg PO DAILY [facility] Last Admin: 03/27/17 09:35 Dose: 400 mg Morphine Sulfate (Morphine) 2 mg IVP Q6 PRN PRN Reason: Pain, severe (8-10) Oxycodone/Acetaminophen (Percocet 5/325 Mg Tab) 1 tab PO Q4 PRN PRN Reason: Pain, moderate (4-7) Stop: 03/29/17 10:20 Pramipexole Dihydrochloride (Mirapex) 0.25 mg PO HS [facility] Last Admin: 03/26/17 21:17 Dose: 0.25 mg Pregabalin (Lyrica) 50 mg PO Q12@0900,2100 [facility] Last Admin: 03/27/17 09:35 Dose: 50 mg Thyroid ([place] Thyroid) 30 mg PO DAILY [facility] Last Admin: 03/27/17 08:21 Dose: 30 mg - Labs Labs: 03/27/17 05:15 03/27/17 05:15 PT 10.5 Seconds (9.8-13.1) 03/25/17 11:45 INR 1.0 (0.9-1.2) 03/25/17 11:45 APTT 34.7 Seconds (25.6-37.1) 03/25/17 11:45 - Constitutional Appears: No Acute Distress - ENT Exam ENT Exam: Mucous Membranes Moist - Respiratory Exam Respiratory Exam: Clear to Ausculation Bilateral, NORMAL BREATHING PATTERN - Cardiovascular Exam Cardiovascular Exam: REGULAR RHYTHM, +S1, +S2 - Extremities Exam Extremities Exam: Normal Inspection (of RLE). absent: Calf Tenderness, Pedal Edema - Neurological Exam Neurological Exam: Alert, Awake, Oriented x3 - Psychiatric Exam Psychiatric exam: Normal Affect, Normal Mood - Skin Skin Exam: Dry, Intact, Normal Color Assessment and Plan (1) Cervical spinal cord compression Assessment & Plan: S/p anterior cervical discectomy with fusion on POD#1 pain control f/u Dr. 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
[2017-03-28] MEDS: ceFAZolin 1 GM in Sodium Chloride 0.9% 100 ML IVPB SCH ×2 (00:30→09:57)
[2017-03-28 08:41] VITALS: RESP 18
--- NOTE | 2017-03-28 09:22 | CP.PCM.PN ---
Subjective - Date & Time of Evaluation Date of Evaluation: 03/28/17 Time of Evaluation: 08:35 - Subjective Subjective: c/o mild sore throat,casper PO without dysphagia,OOB transfer training with PT yesterday,RUE symptoms improved since surgery,residual right hand paresthesias, voiding,+ flatus Objective - Vital Signs/Intake and Output Vital Signs (last 24 hours): Temp Pulse Resp BP Pulse Ox 98.4 F 93 H 18 163/95 H 94 L 03/28/17 08:40 03/28/17 08:40 03/28/17 08:40 03/28/17 08:40 03/28/17 08:40 - Medications Medications: Current Medications Amlodipine Besylate (Norvasc) 5 mg PO DAILY [facility] Last Admin: 03/27/17 21:31 Dose: 5 mg Benzocaine/Menthol (Cepacol Sore Throat) 1 dustin PO Q3 PRN PRN Reason: Sore Throat Last Admin: 03/27/17 23:35 Dose: 1 dustin Cholecalciferol (Vitamin D) 1,000 iu PO DAILY [facility] Last Admin: 03/27/17 09:36 Dose: 1,000 iu Cyclobenzaprine HCl (Flexeril) 5 mg PO TID PRN PRN Reason: Muscle spasm Diltiazem HCl (Cardizem Cd) 240 mg PO DAILY [facility] Last Admin: 03/27/17 08:21 Dose: 240 mg Home Med (Mesalamine [Lialda]) 2.4 gm PO BID [facility] Last Admin: 03/27/17 16:54 Dose: 2.4 gm Home Med (Solifenacin Succinate [Vesicare]) 5 mg PO DAILY [facility] Last Admin: 03/27/17 12:24 Dose: 5 mg Methylprednisolone 40 mg/ (Sodium Chloride) 50 mls @ 100 mls/hr IVPB DAILY [facility] Last Admin: 03/27/17 12:26 Dose: 100 mls/hr Cefazolin Sodium 1 gm/ Sodium (Chloride) 100 mls @ 100 mls/hr IVPB Q8 [facility] Last Admin: 03/28/17 00:30 Dose: 100 mls/hr Magnesium Oxide (Mag-Ox) 400 mg PO DAILY [facility] Last Admin: 03/27/17 09:35 Dose: 400 mg Metoprolol Tartrate (Lopressor) 50 mg PO Q12 [facility] Last Admin: 03/27/17 21:31 Dose: 50 mg Morphine Sulfate (Morphine) 2 mg IVP Q6 PRN PRN Reason: Pain, severe (8-10) Oxycodone/Acetaminophen (Percocet 5/325 Mg Tab) 1 tab PO Q4 PRN PRN Reason: Pain, moderate (4-7) Stop: 03/29/17 10:20 Last Admin: 03/27/17 23:33 Dose: 1 tab Pramipexole Dihydrochloride (Mirapex) 0.25 mg PO HS [facility] Last Admin: 03/27/17 21:32 Dose: 0.25 mg Pregabalin (Lyrica) 50 mg PO Q12@0900,2100 [facility] Last Admin: 03/27/17 21:31 Dose: 50 mg Thyroid ([place] Thyroid) 30 mg PO DAILY [facility] Last Admin: 03/27/17 08:21 Dose: 30 mg - Labs Labs: 03/27/17 05:15 03/27/17 05:15 PT 10.5 Seconds (9.8-13.1) 03/25/17 11:45 INR 1.0 (0.9-1.2) 03/25/17 11:45 APTT 34.7 Seconds (25.6-37.1) 03/25/17 11:45 - Constitutional Appears: Well, Non-toxic, No Acute Distress - Head Exam Head Exam: ATRAUMATIC, NORMAL INSPECTION, NORMOCEPHALIC - Eye Exam Eye Exam: EOMI, PERRL - ENT Exam ENT Exam: Mucous Membranes Moist - Neck Exam Additional comments: right anterior cervical wound C/D/I,DAGMAR patent with small amt of old blood ( outpt 10cc/12hrs),drain d/c,dressing changed,phonating well,+ ability to swallow without difficulty,soft collar in use. - Respiratory Exam Respiratory Exam: Clear to Ausculation Bilateral - Cardiovascular Exam Cardiovascular Exam: REGULAR RHYTHM, +S1, +S2 - GI/Abdominal Exam GI & Abdominal Exam: Soft - Back Exam Back Exam: NORMAL INSPECTION - Neurological Exam Neurological Exam: Alert, Oriented x3 Additional comments: BUCK x 4 antigravity with good strength,sensation intact - Psychiatric Exam Psychiatric exam: Normal Affect, Normal Mood - Skin Skin Exam: Dry, Intact Assessment and Plan - Assessment and Plan (Free Text) Assessment: 77 yo right hand dominant female POD#2 ACDF C4-5,C5-6 Secondary to Cervical Spondylosis/HNP and Myelopathy/Neurogically stable/Hx PVD/L AKA/Htn/ Hypothyroidism Plan: Disposition per PT recommendation,primary care per admitting team,per Dr. Patricia Anne POD #10,call his office for f/u appt date/time in 2-3 weeks.
--- NOTE | 2017-03-28 09:55 | PQF SKIN ---
This form is a permanent part of the medical record 03/28/17 Dr Mendoza, Please document cause or type of skin ulcer: Documentation of a history of PAD/ L AKA. Patient has an ulcer on the R hallux. Consult for distribution coordinator. Clarification of your documentation is requested to better reflect the severity of illness and intensity of treatment of your patient. Indicators present [x] Documentation of skin ulcer [x] Skin breakdown [] Skin wounds [x] Wound Care consult [x] Nursing assessment [] Mobility decreased [] Poor nutrition [] Other: [] Location in the medical record that reflects the above clinical findings: [] Treatment Provided: [] PHYSICIAN'S RESPONSE Based on your medical judgment of the clinical indicators outlined above, are you treating this patient for a known or suspected: Present On Admission [] Skin ulcer NOS [] PVD/PAD associated ulcer [] Diabetic ulcer [] Pressure ulcer include site and stage [] Other, please indicate [] [] If Unable to Determine, please check the box, sign and date. In responding to this query, please exercise your independent professional judgment. The fact that a question is asked does not imply that any particular answer is desired or expected. Thank you for your clarification on this documentation. If you have any questions please call:ext [phone] * Thank you, Maria Crain RN [facility] Pressure Ulcer Stage Descriptions *if the ulcer deteriorates during the admission/encounter, report the deepest stage of ulceration Stage I: Intact skin with non-blanchable redness of a localized area usually over a bony prominence; darkly pigmented skin may not have visible blanching Stage II: Partial thickness loss of dermis presenting as a shallow open ulcer with a red pink wound bed, without slough - may also present as an intact or open/ruptured serum filled blister Stage III: Full thickness tissue loss; subcutaneous fat may be visible but bone , tendon or muscle are not exposed. Slough may be present but does not obscur the depth of tissue loss - may include undermining and tunneling Stage IV: Full thickness tissue loss with exposed bone, tendon or muscle - slough eschar may be present on some parts of the wound bed; often includes undermining and tunneling Unstageable: Full thickness tissue loss in which the base of the ulcer is convered by slough and/or eschar *if the "unstageable ulcer" is "staged" during the admission/encounter, report the stage Suspected Deep Tissue Injury: Purple or maroon localized area of discolored intact skin or blood filled blister d/t damage of the underlying soft tissue from pressure and/or sheer. The wound may further evolve and become covered by a thin eschar. Evolution may be rapid exposing additional layers of tissue even with optimal treatment.~~~~~~~~~~~~~~~~~~~~~~~~~~~~~~~~~~~~~~~~~~~~~~~~~~~~~~~~~ ~~~~~~~~~~~~~~~~~~~~~~~~~~~~~~~~~~~~~~~~~~~~~~~~~~~~~~~~~~~~~~~~ NPANALISA; 2006 REFERENCE: KENYON EUBANKS
[2017-03-28] MEDS: diltiaZEM 240 mg/24 Hours CD Cap PO SCH (09:56)
[2017-03-28] MEDS: THYROID 30 MG TAB PO SCH (09:56)
[2017-03-28] MEDS: Patient's Own Med (Solifenacin Succinate [Vesicare] 5 MG) PO SCH (09:59)
[2017-03-28] MEDS: Magnesium Oxide 400 mg Tab UD PO SCH (09:59)
[2017-03-28] MEDS: methylPREDNISolone 40 MG in Sodium Chloride 0.9% 50 ML IVPB SCH (10:00)
[2017-03-28 12:30] VITALS: BP 166/85; PULSE 77; TEMP 98.1; O2SAT 95
--- NOTE | 2017-03-28 14:45 | RAD ---
PROCEDURE: Fluoroscopy greater than 1 hour. HISTORY: ACDF COMPARISON: None TECHNIQUE: Standard protocol for this study/examination. FINDINGS: Submitted images from the current procedure: 1.0. IMPRESSION: Total fluoroscopic time (continuous mode) utilized during the procedure: 10.9 seconds.
--- NOTE | 2017-03-29 15:39 | CP.PCM.DIS ---
Provider - Provider Date of Admission: 03/25/17 11:47 Attending physician: Alok Mendoza MD Primary care physician: Nash Gomez MD Time Spent in preparation of Discharge (in minutes): 30 Diagnosis - Discharge Diagnosis (1) Cervical spinal cord compression Status: Acute Comment: S/p anterior cervical discectomy with fusion on POD#2. f/u with Dr. Gomez. 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 F/U with Podiatry, [facility] Course - Lab Results Lab Results: Most Recent Lab Values WBC 7.8 K/uL (4.8-10.8) D 03/27/17 05:15 RBC 4.55 Mil/uL (3.80-5.20) 03/27/17 05:15 Hgb 13.3 g/dL (12.0-16.0) 03/27/17 05:15 Hct 40.1 % (34.0-47.0) 03/27/17 05:15 MCV 88.2 fl (81.0-99.0) 03/27/17 05:15 MCH 29.3 pg (27.0-31.0) 03/27/17 05:15 MCHC 33.2 g/dL (33.0-37.0) 03/27/17 05:15 RDW 13.9 % (11.5-14.5) 03/27/17 05:15 Plt Count 271 K/uL (130-400) 03/27/17 05:15 MPV 6.3 fl (7.2-11.7) L 03/25/17 11:45 Neut % (Auto) 62.8 % (50.0-75.0) 03/25/17 11:45 Lymph % (Auto) 19.0 % (20.0-40.0) L 03/25/17 11:45 [place] % (Auto) 17.2 % (0.0-10.0) H 03/25/17 11:45 Eos % (Auto) 0.0 % (0.0-4.0) 03/25/17 11:45 Baso % (Auto) 1.0 % (0.0-2.0) 03/25/17 11:45 Neut # 2.1 K/uL (1.8-7.0) 03/25/17 11:45 Lymph # 0.6 K/uL (1.0-4.3) L 03/25/17 11:45 [place] # 0.6 K/uL (0.0-0.8) 03/25/17 11:45 Eos # 0.0 K/uL (0.0-0.7) 03/25/17 11:45 Baso # 0.0 K/uL (0.0-0.2) 03/25/17 11:45 Neutrophils % (Manual) 59 % (42-75) 03/25/17 11:45 Lymphocytes % (Manual) 21 % (20-50) 03/25/17 11:45 Reactive Lymphs % 2 % (0-0) H 03/25/17 11:45 Monocytes % (Manual) 16 % (0-10) H 03/25/17 11:45 Basophils % (Manual) 2 % (0-2) 03/25/17 11:45 Platelet Estimate Normal (NORMAL) 03/25/17 11:45 Large Platelets Present 03/25/17 11:45 Poikilocytosis (manual Slight 03/25/17 11:45 Anisocytosis (manual) Slight 03/25/17 11:45 PT 10.5 Seconds (9.8-13.1) 03/25/17 11:45 INR 1.0 (0.9-1.2) 03/25/17 11:45 APTT 34.7 Seconds (25.6-37.1) 03/25/17 11:45 Sodium 136 mmol/l (132-148) 03/27/17 05:15 Potassium 4.3 MMOL/L (3.6-5.0) 03/27/17 05:15 Chloride 103 mmol/L (98-107) 03/27/17 05:15 Carbon Dioxide 25 mmol/L (22-30) 03/27/17 05:15 Anion Gap 13 (10-20) 03/27/17 05:15 BUN 8 mg/dl (7-17) 03/27/17 05:15 Creatinine 0.4 mg/dL (0.7-1.2) L 03/27/17 05:15 Est GFR ( Amer) > 60 03/27/17 05:15 Est GFR (Non-Af Amer) > 60 03/27/17 05:15 POC Glucose (mg/dL) 119 mg/dL (65-110) H 03/27/17 11:57 Random Glucose 139 mg/dL (65-105) H 03/27/17 05:15 Calcium 9.2 mg/dL (8.4-10.2) 03/27/17 05:15 Urine Color [place] (YELLOW) 03/25/17 17:52 Urine Clarity Cloudy (Clear) 03/25/17 17:52 Urine pH 5.0 (5.0-8.0) 03/25/17 17:52 Ur Specific [place] 1.020 (1.003-1.030) 03/25/17 17:52 Urine Protein 100 mg/dL (NEGATIVE) 03/25/17 17:52 Urine Glucose (UA) Neg mg/dL (Normal) 03/25/17 17:52 Urine Ketones Trace mg/dL (NEGATIVE) 03/25/17 17:52 Urine Blood Negative (NEGATIVE) 03/25/17 17:52 Urine Nitrate Negative (NEGATIVE) 03/25/17 17:52 Urine Bilirubin Negative (NEGATIVE) 03/25/17 17:52 Urine Urobilinogen 0.2-1.0 mg/dL (0.2-1.0) 03/25/17 17:52 Ur Leukocyte Esterase Mod [place]/uL (Negative) 03/25/17 17:52 Urine Microscopic WBC 51 /hpf (0-5) H 03/25/17 17:52 Ur Squamous Epith Cells 6 /hpf (0-5) H 03/25/17 17:52 Urine Bacteria Rare (<OCC) 03/25/17 17:52 Blood Type A POSITIVE 03/26/17 07:45 Blood Type Confirm A POSITIVE 03/26/17 08:18 Antibody Screen Positive 03/26/17 07:45 Antibody Identification Anti E 03/26/17 07:45 Antigen Identification E Antigen - NEGATIVE 03/26/17 07:45 BBK History Checked No verified bt 03/26/17 07:45 Discharge Exam - Head Exam Head Exam: ATRAUMATIC, NORMAL INSPECTION, NORMOCEPHALIC - ENT Exam ENT Exam: Mucous Membranes Moist - Respiratory Exam Respiratory Exam: Clear to PA & Lateral, NORMAL BREATHING PATTERN - Cardiovascular Exam Cardiovascular Exam: REGULAR RHYTHM, +S1, +S2 - GI/Abdominal Exam GI & Abdominal Exam: Normal Bowel Sounds, Soft. absent: Distended, Guarding, Rigid, Tenderness - Extremities Exam Extremities exam: normal inspection Additional comments: Normal Inspection (of RLE). absent: Calf Tenderness, Pedal Edema. Left AKA. Right great toe ulcer measuring approximately 1 cm diameter, no draining - Neurological Exam Neurological exam: Alert, Oriented x3 - Psychiatric Exam Psychiatric exam: Normal Affect - Skin Skin Exam: Dry, Intact, Normal Color Discharge Plan - Discharge Medications Prescriptions: amLODIPine [Norvasc] 5 mg PO DAILY #30 tab Cyclobenzaprine [Flexeril] 5 mg PO TID PRN #15 tab PRN Reason: Muscle Spasm Metoprolol Tartrate [Lopressor] 50 mg PO Q12 #60 tab oxyCODONE/Acetaminophen [Percocet 5/325 mg Tab] 1 tab PO Q4 PRN #20 tab PRN Reason: Pain, Moderate (4-7) - Follow Up Plan Condition: GOOD Disposition: HOME/ ROUTINE Instructions: Chronic Hypertension (DC) Additional Instructions: patient cleared for discharge to Home today by and E rx sent to patient's outpatient pharmacy Discussed d/c instructions with patient and her daughter Deborah perdomo assist patient at home; Homecare f/u w/ [facility] pt. will f/u with in1-2 weeks Referrals: Nash Gomez MD [Primary Care Provider] -
== END 2017-03-28 13:40 | disposition home health service (06) | DRG 472 ==
LOC: H.ER 10:54 → SUPCPDRO 10:54 → H.ERHOLD 11:47 → UNDOADMIN 11:47 → H.MEDSURG1 11:47 → H.ERHOLD 13:35 → H.TEL 03-26 10:07 → H.MEDSURG1 03-26 12:08 → UNDOADMIN 03-26 22:17 → H.ERHOLD 03-26 22:17 → H.TEL 03-26 22:17 → H.MEDSURG1 03-26 22:17
PROVIDERS: ADMIT Family Medicine; ATTEND Family Medicine
PROC: 0RG20A1 (ICD-10-PCS; 2017-03-26)
PROC: 0RB30ZZ Excision of Cervical Vertebral Disc, Open Approach (ICD-10-PCS; principal; 2017-03-26 07:45)
DX: M50.021 Cervical disc disorder at C4-C5 level with myelopathy (principal); M47.12 Other spondylosis with myelopathy, cervical region; Z89.612 Acquired absence of left leg above knee; L97.519 Non-pressure chronic ulcer of other part of right foot with unspecified severity; M50.022 Cervical disc disorder at C5-C6 level with myelopathy; I10 Essential (primary) hypertension; E03.9 Hypothyroidism, unspecified; I73.9 Peripheral vascular disease, unspecified; F17.210 Nicotine dependence, cigarettes, uncomplicated; Z79.01 Long term (current) use of anticoagulants